=== PATIENT | male | born 1955 | race Caucasian/White ===

== ENCOUNTER → 2019-10-20 | Outpatient (CLI) | payer OTHER ==
[~2019-10-20] MED LIST: ASPI-630 PO; ATOR10TA PO; BUPIVACAINE MPF 0.5% 30 ML VIAL. ONE; CETI1TAB7 PO; CHOL400C2 PO; HYDR-2145 PO; IOHEXOL 300 MG/ML 50 ML VIAL. ONE; LIDOCAINE 1% PF 30 ML VIAL. ONE; MELO7.5T29 PO; OMEG-33 PO; methylPREDNISolone ACETATE 80 MG/ML VIAL. ONE
[2019-10-20 11:05] VITALS: BP 118/69
== END | disposition home or self-care (01) ==
LOC: SURG 09:58
PROVIDERS: ATTEND Anesthesiology Pain Medicine
DX: M19.012 Primary osteoarthritis, left shoulder (principal)
CPT/HCPCS: 20610; 77002; J1040; J2001; J3490; Q9967; 20611